=== PATIENT | female | born 1945 | race Caucasian/White ===

== ENCOUNTER 2016-05-07 10:51 | Emergency (ER) | payer OTHER ==
[~2016-05-07] VITALS: Ht 165.1 cm; Wt 71.0 kg
[2016-05-07] MEDS ORDERED: NAPROSYN500 MG PO ×2 (13:54→13:59)
[2016-05-07 14:20] VITALS: BP 140/76
== END 2016-05-07 14:20 | disposition home or self-care (01) ==
LOC: EME 10:51
DX: S20.212A Contusion of left front wall of thorax, initial encounter (principal); W01.198A Fall on same level from slipping, tripping and stumbling with subsequent striking against other object, initial encounter; Y92.002 Bathroom of unspecified non-institutional (private) residence as the place of occurrence of the external cause; Z85.3 Personal history of malignant neoplasm of breast
CPT/HCPCS: 71010; 71100; 99281; 99284; J1885

== ENCOUNTER 2016-06-09 10:04 | Emergency (ER) | payer OTHER ==
[~2016-06-09] VITALS: Ht 165.1 cm; Wt 77.1 kg
[~2016-06-09 10:04] MED LIST: NAPROSYN500 MG PO
[2016-06-09] MEDS ORDERED: ELAVIL50 MG PO (10:16)
[2016-06-09] MEDS ORDERED: PROZAC10 MG PO (10:16)
[2016-06-09 10:35] LABS: HEMATOCRIT 37.9 % (36.0-46.0); MCH 30.7 PG (29.0-34.0); MCV 93.1 FL (83-99); PLATELET COUNT 220 K/uL (156-360); RBC DIS.WIDTH-CV 12.1 % (11.8-14.6); RBC DIS.WIDTH-SD 41.6 % (39-53); RED BLOOD COUNT 4.07 M/uL (3.80-5.20); WHITE BLOOD COUNT 4.1 K/uL (4.1-10.2)
[2016-06-09 10:44] LABS: CHLORIDE 106 mEq/L (99-109); POTASSIUM 4.1 mEq/L (3.7-5.4); SODIUM 138 mEq/L (136-147)
[2016-06-09 10:45] LABS: GLUCOSE 111 mg/dL (70-99)
[2016-06-09 10:46] LABS: PROTHROMBIN TIME 10.2 (9.2-11.2)
[2016-06-09 10:47] LABS: ANION GAP 9 MEQ/L (2-14)
[2016-06-09 10:49] LABS: GFR ESTIMATE (CALCULATED) 58 mL/min/
[2016-06-09 10:50] LABS: UREA NITROGEN (BUN) 8 mg/dL (9-23)
[2016-06-09 12:12] VITALS: BP 123/93
== END 2016-06-09 12:13 | disposition home or self-care (01) ==
LOC: EME 10:04
PROVIDERS: Emergency Medicine
PROC: 3E0234Z Introduction of Serum, Toxoid and Vaccine into Muscle, Percutaneous Approach (ICD-10-PCS; principal; 2016-06-09)
DX: S68.620A Partial traumatic transphalangeal amputation of right index finger, initial encounter (principal); S61.210A Laceration without foreign body of right index finger without damage to nail, initial encounter; W28.XXXA Contact with powered lawn mower, initial encounter; Y93.H9 Activity, other involving exterior property and land maintenance, building and construction; Z23 Encounter for immunization; Z85.3 Personal history of malignant neoplasm of breast; Z87.891 Personal history of nicotine dependence
CPT/HCPCS: 80048; 85027; 85610; 99281; 99284; J2270; J2405